=== PATIENT | male | born 1950 | race Caucasian/White ===

== ENCOUNTER 2018-04-26 17:30 | Emergency (ER) | payer BC ==
[~2018-04-26] VITALS: Ht 175.3 cm; Wt 115.9 kg
[~2018-04-26 17:30] MED LIST: AMLODIPINE BESYL5 MG PO; ASPIR-LOW81 MG PO; BENICAR HCT 401 EAC1 PO; ENALAPRIL MALEA20 MG PO; FOLIC ACID1 MG PO; GABAPENTIN300 MG PO; GLUCOSAMINE1000 MG PO; HYDROCHLOROTHIA25 MG PO; MAGNESIUM250 MG PO; NAPROSYN500 MG PO; OMEGA 3-6-9 CO1 EACH PO; OXYCONTIN10 MG PO; TYLENOL REGULA325 MG PO; VICODIN 5-3001 EACH PO; VITAMIN B-1250 MG PO
[2018-04-26 18:06] LABS: BASOPHIL (%) 0.7 % (0-1); EOSINOPHIL (%) 1.3 % (0-5); EOSINOPHIL COUNT 0.1 K/uL (0-0.3); HEMATOCRIT 35.5 % (38.0-50.0); HEMOGLOBIN 12.4 G/DL (12.5-16.6); IMMATURE GRANULOCYTE (%) 1.8 % (0.0-0.7); LYMPHOCYTE (%) 26.6 % (15-42); LYMPHOCYTE COUNT 1.2 K/uL (1.0-2.8); MCH 38.5 PG (29.0-34.0); MCHC 34.9 G/DL (30.0-36.0); MCV 110.2 FL (86-99); MONOCYTE (%) 15.8 % (3-12); MONOCYTE COUNT 0.7 K/uL (0-0.8); NEUTROPHIL (%) 53.8 % (45-76); NEUTROPHIL COUNT 2.4 K/uL (1.8-6.4); PLATELET COUNT 109 K/uL (156-360); RBC DIS.WIDTH-CV 13.6 % (11.8-14.6); RBC DIS.WIDTH-SD 54.7 % (39-53); RED BLOOD COUNT 3.22 M/uL (4.00-5.50); WHITE BLOOD COUNT 4.5 K/uL (4.1-10.2)
[2018-04-26 18:12] LABS: ALBUMIN 4.5 g/dL (3.2-4.8)
[2018-04-26 18:13] LABS: CHLORIDE 106 mEq/L (99-109); POTASSIUM 4.2 mEq/L (3.7-5.4); SODIUM 141 mEq/L (136-147)
[2018-04-26 18:15] LABS: GLUCOSE 94 mg/dL (70-99); TOTAL PROTEIN 8.2 g/dL (6.4-8.3)
[2018-04-26 18:17] LABS: TOTAL BILIRUBIN 1.5 mg/dL (0.0-1.0)
[2018-04-26 18:18] LABS: ALKALINE PHOSPHATASE 63 IU/L (3-129)
[2018-04-26 18:19] LABS: CREATININE 0.9 mg/dL (0.6-1.3); GFR ESTIMATE (CALCULATED) > 59 mL/min/ (58.99-99999)
[2018-04-26 18:20] LABS: AST (GOT) 21 IU/L (2-34); UREA NITROGEN (BUN) 16 mg/dL (9-23)
[2018-04-26 18:21] LABS: ALT (GPT) 24 IU/L (3-49)
[2018-04-26] MEDS ORDERED: CIPRO500 MG PO (18:31)
[2018-04-26] MEDS ORDERED: FLAGYL500 MG PO (18:31)
[2018-04-26 19:19] VITALS: BP 164/77
== END 2018-04-26 18:55 | disposition home or self-care (01) ==
LOC: EME 17:30
PROVIDERS: Emergency Medicine
DX: K57.32 Diverticulitis of large intestine without perforation or abscess without bleeding (principal); K59.00 Constipation, unspecified; I10 Essential (primary) hypertension; Z87.891 Personal history of nicotine dependence
CPT/HCPCS: 80053; 85025; 99281; 99284